=== PATIENT | female | born 1965 | race Caucasian/White ===

== ENCOUNTER → 2019-07-04 13:40 | Outpatient (BNVA) | payer BC, SELFPAY | PROVIDERS: Visit Provider Psychiatry & Neurology Psychiatry | DX: Z63.4 Disappearance and death of family member (principal); G47.33 Obstructive sleep apnea (adult) (pediatric); F17.210 Nicotine dependence, cigarettes, uncomplicated | CPT/HCPCS: 99213 ==

== ENCOUNTER → 2019-10-04 07:30 | Outpatient (BNVA) | payer BC, SELFPAY | PROVIDERS: Visit Provider Psychiatry & Neurology Psychiatry | DX: G47.33 Obstructive sleep apnea (adult) (pediatric) (principal); Z63.4 Disappearance and death of family member; F17.210 Nicotine dependence, cigarettes, uncomplicated | CPT/HCPCS: 99213 ==

== ENCOUNTER → 2019-12-06 09:42 | Outpatient (BNVA) | payer BC, SELFPAY | PROVIDERS: Visit Provider Psychiatry & Neurology Psychiatry | DX: F90.2 Attention-deficit hyperactivity disorder, combined type (principal); F17.210 Nicotine dependence, cigarettes, uncomplicated; G47.33 Obstructive sleep apnea (adult) (pediatric) | CPT/HCPCS: 99213 ==

== ENCOUNTER → 2020-03-30 07:50 | Outpatient (BNVA) | payer BC, SELFPAY | PROVIDERS: Visit Provider Nurse Practitioner Psychiatric/Mental Health | DX: Z63.4 Disappearance and death of family member (principal); F17.210 Nicotine dependence, cigarettes, uncomplicated; G47.33 Obstructive sleep apnea (adult) (pediatric) | CPT/HCPCS: 99212 ==

== ENCOUNTER → 2020-06-26 08:12 | Outpatient (BNVA) | payer BC, SELFPAY | PROVIDERS: Visit Provider Psychiatry & Neurology Psychiatry | DX: G47.33 Obstructive sleep apnea (adult) (pediatric) (principal); F17.210 Nicotine dependence, cigarettes, uncomplicated | CPT/HCPCS: 99213 ==

== ENCOUNTER → 2020-09-18 08:31 | Outpatient (BNVA) | payer BC, SELFPAY | PROVIDERS: Visit Provider Psychiatry & Neurology Psychiatry | DX: G47.33 Obstructive sleep apnea (adult) (pediatric) (principal); F17.210 Nicotine dependence, cigarettes, uncomplicated; G47.19 Other hypersomnia | CPT/HCPCS: 99214 ==

== ENCOUNTER 2020-11-04 14:49 | Outpatient (CLI) | payer OTHER, SELFPAY ==
--- NOTE | 2020-11-04 14:52 | MR_ITS ---
WS: [id number] MRI LUMBAR SPINE NONCONTRAST HISTORY: LOW BACK PAIN COMPARISON: None available. TECHNIQUE: Sagittal and axial multisequence imaging is submitted. Moderate increase in thoracic kyphosis. Moderate central disc bulging and focal disc protrusion at T1 2-L1. No cord contact on the cord. Increase in the lumbar lordosis. Less than 2 mm retrolisthesis of L1. Less than 2 mm anterolisthesis of L3. Mild disc desiccation throughout the lumbar spine with only mild narrowing at L1-2. Conus terminates normally at L1-2 disc level. L1-L2: Diffuse annular disc bulging asymmetric to the RIGHT. There is a moderate sized RIGHT foramina l disc protrusion contacting the L1 and L2 nerve roots. Most significant contact on the RIGHT L1 nerv e root. Moderate to severe RIGHT foraminal stenosis. L2-L3: Diffuse disc bulging and facet arthritis. No stenosis. L3-L4: Moderate facet and ligamentum flavum hypertrophy. Mild bilateral foraminal stenosis. L4-L5: Diffuse annular disc bulging with moderate ligamentum flavum upper kidney and facet arthritis. Mild bilateral foraminal stenosis. L5-S1: Mild annular disc bulging. Broad-based disc protrusion in the LEFT subarticular recess extendi ng into the foramen. Near complete effacement of fat in the LEFT foramen. Moderate to severe LEFT for aminal and subarticular stenosis. Disc contact on the LEFT L5 and S1 nerve roots. Lobulated cyst in the RIGHT first sacral foramina. MR/MR lumbar spine wo con* [id number] IMPRESSION: 1. Moderate to severe RIGHT foraminal stenosis at L1-2 asymmetric disc bulging and moderate disc protrusion contacting the L1 and L2 nerve roots. 2. Moderate to severe LEFT foraminal and subarticular recess stenosis due to d isc bulging and broad-based protrusion contacting the LEFT L5 and S1 nerve root s. 3. Mild bilateral foraminal stenosis at L3-4 and L4-5.
== END 2020-11-04 14:50 | disposition home or self-care (01) ==
LOC: RADSHAW 14:51
PROVIDERS: Visit Provider Chiropractor
DX: M48.061 Spinal stenosis, lumbar region without neurogenic claudication (principal); M51.26 Other intervertebral disc displacement, lumbar region
CPT/HCPCS: 72148

== ENCOUNTER 2023-01-30 15:08 | Outpatient (CLI) | payer OTHER, MEDICAID, SELFPAY ==
--- NOTE | 2023-01-30 15:21 | XR_ITS ---
WS: [id number] EXAMINATION: XR lumbar spine 2-3V* [id number] L-SPINE : 3 views REASON FOR EXAM: CHRONIC MIDLINE LOW BACK PAIN W/O SCIATICA COMPARISON: None available. ORDER DATE: 01/30/2023 3:26 PM FINDINGS: The lumbar vertebral bodies and the disc spaces are normal in width. There is a 19 degree levoscolios is centered at about the L2 level.. In the lumbar vertebra, there is no evidence of compression defor mities or spondylolisthesis. There is a curvilinear arc of calcification that superimposes the lower pole of the right kidney 2 cm in length and a few millimeters in width. This may need to be correlate d with other imaging which is not available and if no previous studies are available then a CT imagin g study is recommended to to further evaluate. IMPRESSION: Scoliosis as noted above
== END 2023-01-30 15:09 | disposition home or self-care (01) ==
PROVIDERS: Visit Provider Nurse Practitioner Family
DX: M41.86 Other forms of scoliosis, lumbar region (principal); M54.50 Low back pain, unspecified
CPT/HCPCS: 72100

== ENCOUNTER 2023-02-20 13:08 | Outpatient (CLI) | payer OTHER, MEDICAID, SELFPAY ==
--- NOTE | 2023-02-20 13:13 | MM_ITS ---
WS: [id number] VIEWS: MLO and CC views both breasts. 3D digital tomosynthesis is also included in this exam. Comparison made with prior exam of 11/14/2007, 11/20/2008, 04/09/2010, 03/18/2011, 06/17/2011,. Findings: There was no sign of mass, architectural distortion or suspicious calcification in either breast. The breasts are heterogeneously dense which may obscure small masses Impression: MM/[place] [id number] BI-RADS: 2-Benign finding. FOLLOW-UP: 1 Year Follow-up This mammogram was also analyzed by the Computer Aided Detection System R2 [employer].
== END 2023-02-20 13:09 | disposition home or self-care (01) ==
LOC: RAD 13:08
PROVIDERS: PCP Nurse Practitioner Family; Visit Provider Nurse Practitioner Family
DX: Z12.31 Encounter for screening mammogram for malignant neoplasm of breast (principal)
CPT/HCPCS: 77063; 77067

== ENCOUNTER 2024-06-12 13:38 | Outpatient (CLI) | payer OTHER, SELFPAY ==
--- NOTE | 2024-06-12 | MM_ITS ---
WS: [id number] BILATERAL 3D TOMOSYNTHESIS DIGITAL SCREENING MAMMOGRAPHY WITH CAD CLINICAL INFORMATION: ANNUAL SCREEN HISTORY: Screening mammogram. No current complaints. COMPARISON: 2022 TECHNIQUE: Bilateral CC and MLO views. FINDINGS: The breasts are composed of heterogeneous fibroglandular density tissue, which can limit the detection of small underlying mass lesions. No suspicious mass, asymmetry, calcifications, or architectural distortion. No evidence of malignancy. MM/MM scr tomosynthesis [id number] IMPRESSION: DENSITY: The breasts are heterogeneously dense, which may obscure small masses. BI-RADS: 1 - Negative FOLLOW UP: 1 Year Follow-up Recommend return to annual screening mammography.
== END 2024-06-12 13:39 | disposition home or self-care (01) ==
LOC: RAD 13:39
PROVIDERS: PCP Nurse Practitioner Family; Visit Provider Family Medicine
DX: Z12.31 Encounter for screening mammogram for malignant neoplasm of breast (principal); R92.333 Mammographic heterogeneous density, bilateral breasts
CPT/HCPCS: 77063; 77067

== ENCOUNTER 2025-02-07 20:52 | Inpatient (IN) | payer OTHER, SELFPAY ==
[2025-02-07 21:11] VITALS: BP 114/72; PULSE 112; RESP 16; TEMP 37; O2SAT 96; BMI 25.6
--- NOTE | 2025-02-07 22:44 | CTR_ITS ---
PROCEDURE INFORMATION: Exam: CT Abdomen And Pelvis With Contrast Exam date and time: 02/08/2025 12:30 AM Age: 59 years old Clinical indication: Abdominal pain; Localized; Lower; Prior surgery; Surgery date: 6+ months; Surgery type: Tubal; Additional info: Rlq and back pain TECHNIQUE: Imaging protocol: Computed tomography of the abdomen and pelvis with contrast. Radiation optimization: All CT scans at this facility use at least one of these dose optimization techniques: automated exposure control; mA and/or kV adjustment per patient size (includes targeted exams where dose is matched to clinical indication); or iterative reconstruction. Contrast material: OMNIPAQUE 350; Contrast volume: 100 ml; Contrast route: INTRAVENOUS (IV); COMPARISON: CR XR hip RT 2-3V wo/w pel* [id number] 05/07/2020 10:53 AM RADIATION DOSE METRICS: Total DLP (mGy-cm): 576.84 FINDINGS: Diaphragm: Agrr-[id number]-gjnajnuh hiatal hernia. Liver: Normal. No mass. Gallbladder and biliary ducts: Gallstones without definite significant acute inflammatory changes. Mild intra and extrahepatic biliary ductal dilatation, unknown clinical significance. Pancreas: Normal. No ductal dilation. 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 Adrenal glands: Normal. No mass. Kidneys and ureters: Ill-defined peripheral striations of low-attenuation within the bilateral kidneys, nonspecific, could be related to ascending urinary tract infection or prior infarcts with other etiologies not excluded. Stomach and bowel: Unremarkable. No obstruction. No mucosal thickening. Appendix: No evidence of appendicitis. Intraperitoneal space: Unremarkable. No free air. No significant fluid collection. Vasculature: Aortic atherosclerosis. Lymph nodes: Unremarkable. No enlarged lymph nodes. Urinary bladder: Unremarkable as visualized. Reproductive: Unremarkable as visualized. Bones/joints: [id number] degenerative changes of the lumbar spine. Soft tissues: Unremarkable. CT/CT abdomen pelvis w con* [id number] IMPRESSION: 1. Gallstones without definite significant acute inflammatory changes. 2. Ill-defined peripheral striations of low-attenuation within the bilateral kidneys, nonspecific, could be related to ascending urinary tract infection or prior infarcts with other etiologies not excluded.
--- NOTE | 2025-02-07 22:44 | W.ED.ABDPA2 ---
HPI - Abdominal Pain General: Chief Complaint: Abdominal Pain Stated Complaint: Possible Pro-Lapes Bladder Time Seen by Provider: 02/07/25 22:31 History of Present Illness: Patient presents with severe right lower quadrant pain that radiates around to the flank. The pain began earlier this week with initial pain on Monday in a different location, associated with diarrhea and fecal incontinence throughout the night. The patient reports the diarrhea resolved by the next morning with some improvement in symptoms. On , the pain returned and localized to the right lower quadrant with radiation. The patient describes the pain as severe, worse than labor pains, and reports it has significantly disrupted her sleep. She has been experiencing alternating hot and cold flashes. The patient has tried Tylenol without relief. She denies nausea or vomiting but reports urinary urgency with incontinence. The patient also mentions having uterine prolapse issues that have not been addressed due to insurance limitations. Related Data Home Medications ?Medication ?Instructions ?Recorded ?Confirmed cetirizine 10 mg tablet (Zyrtec) 10 mg PO DAILY 10/13/22 02/08/25 celecoxib 200 mg capsule 200 mg PO DAILY 11/24/23 02/08/25 omeprazole 20 mg capsule,delayed 20 mg PO DAILY 11/24/23 02/08/25 release hydrochlorothiazide 25 mg tablet 25 mg PO DAILY 02/08/25 02/08/25 Previous Rx's ?Medication ?Instructions ?Recorded tizanidine 4 mg tablet 4 mg PO BID PRN muscle spasticity 09/18/23 #60 tabs alprazolam 0.5 mg tablet (Xanax) 0.5 mg PO DAILY #30 tabs 11/08/24 dextroamphetamine-amphetamine 20 20 mg PO BID 30 days #60 tabs 01/21/25 mg tablet (Adderall) Allergies Allergy/AdvReac Type Severity Reaction Status Date / Time codeine Allergy Mild ADR-Gastrointestinal Verified 02/07/25 21:20 Upset [facility] ED PFS: Medical History Psychiatric care Bereavement Cigarette smoker Obstructive sleep apnea Family History Grandfather Diabetes Heart disease Hypertension Mother Heart disease Hyperlipidemia Hypertension Uterine cancer Father Heart disease Hyperlipidemia Hypertension Brother Hyperlipidemia Denies family history of Colon cancer Ovarian cancer Prostate cancer Breast cancer Thyroid disease Stroke Social History Smoking and tobacco/nicotine status: current every day tobacco/nicotine user cigarettes Packs smoked per day: 1 Physical Exam Const: GENERAL APPEARANCE: cooperative and ill appearing; not frail appearing HENMT: COMMON NORMALS: normocephalic, atraumatic and Normal external nose present HEAD & SCALP: normocephalic and atraumatic FACE & SINUS: normal facial exam and face symmetric NOSE: Normal external nose present Eye: COMMON NORMALS: Equal, round and reactive pupils present and EOMs intact bilaterally PUPIL: Yes Equal, round and reactive pupils present Neck/C-Spine: GENERAL: Yes trachea midline Chest: CHEST: Yes Symmetrical chest wall rise Resp: COMMON NORMALS: normal respiratory effort, No retractions, No use of accessory muscles and clear to auscultation bilaterally AUSCULTATION: clear to auscultation bilaterally Cardio: COMMON NORMALS: regular rate and regular rhythm RATE: regular rate RHYTHM: regular rhythm GI: COMMON NORMALS: Normal to inspection, nondistended, normoactive bowel sounds present PALPATION: Yes Tenderness to palpation present (GI) Details: RLQ Extremity: COMMON NORMALS: no pedal edema Neuro: MCK[place] COMA SCALE: document GCS findings [place] coma scale eye opening: Spontaneous [place] coma scale verbal response: Orientated [place] coma scale motor response: Obey commands [place] coma scale total score: 15 SENSORY EXAM: Yes extremities (intact) Psych: COMMON NORMALS: speech normal SPEECH: Yes normal speech Skin: COMMON NORMALS: no rashes or lesions noted GENERAL SKIN EXAM: no rashes or lesions noted Course Vital Signs: Vital signs: Vital Signs Temperature 101 F H 02/08/25 16:24 Pulse Rate 107 H 02/08/25 16:24 Respiratory Rate 16 02/08/25 16:24 Blood Pressure 121/66 02/08/25 16:24 Pulse Oximetry 91 02/08/25 16:24 Oxygen Delivery Me thod Room Air 02/08/25 16:24 MDM - Abdominal Pain Medical Decision Making Patient is tachycardic. She has been normotensive. She is afebrile in the ER. White blood cell count is 22. Lactic acid is 1.3 with a CRP of 292. Creatinine is 0.6. CT shows gallstones without significant inflammatory change. She has fat stranding in the bilateral kidneys which would be a finding indicative of pyelonephritis. She is given IV Rocephin here, with fluid bolus after blood cultures. She will be admitted for pyelonephritis with likely early sepsis. She was hypokalemic, so IV potassium was administered as well. Lab Data 02/08/25 09:19 02/08/25 09:19 Labs/Radiology: Radiology Impressions Abdomen/Pelvis CT 02/07/25 22:44 IMPRESSION: 1. Gallstones without definite significant acute inflammatory changes. 2. Ill-defined peripheral striations of low-attenuation within the bilateral kidneys, nonspecific, could be related to ascending urinary tract infection or prior infarcts with other etiologies not excluded. Laboratory Results WBC 29.07 10^3/uL (3.29-11.43) H 02/07/25 22:50 RBC 3.79 10^6/uL (3.85-5.65) L 02/07/25 22:50 Hgb 12.10 g/dL (11.27-16.99) 02/07/25 22:50 Hct 34.8 % (36-47) L 02/07/25 22:50 MCV 91.8 fl (85-98) 02/07/25 22:50 MCH 31.9 pg (27-33) 02/07/25 22:50 MCHC 34.8 g/dL (30-55) 02/07/25 22:50 RDW 12.5 % (12.1-15.1) 02/07/25 22:50 Plt Count 217 10^3/cmm (157-399) 02/07/25 22:50 MPV 9.7 fL (7.4-10.4) 02/07/25 22:50 Neut % (Auto) 85.7 % 02/07/25 22:50 Lymph % (Auto) 5.6 % 02/07/25 22:50 [place] % (Auto) 7.4 % 02/07/25 22:50 Eos % (Auto) 0.1 % 02/07/25 22:50 Baso % (Auto) 0.4 % 02/07/25 22:50 Neut # (Auto) 24.92 10^3/uL (1.8-7.7) H 02/07/25 22:50 Lymph # (Auto) 1.6 10^3/uL (0.8-4.8) 02/07/25 22:50 [place] # (Auto) 2.2 10^3/uL (0.2-0.9) H 02/07/25 22:50 Eos # (Auto) 0.0 10^3/uL (0.0-0.8) 02/07/25 22:50 Baso # (Auto) 0.1 10^3/uL (0.0-0.1) 02/07/25 22:50 Nucleated RBC % (auto) 0 % 02/07/25 22:50 Nucleated RBCs # 0.0 /100WBC 02/07/25 22:50 Sodium 137 mmol/L (136-145) 02/07/25 22:50 Potassium 2.9 mmol/L (3.5-5.1) L 02/07/25 22:50 Chloride 96 mmol/L (98-107) L 02/07/25 22:50 Carbon Dioxide 24 mmol/L (22-29) 02/07/25 22:50 Anion Gap 19.9 (5-19) H 02/07/25 22:50 BUN 15 mg/dL (8-23) 02/07/25 22:50 Creatinine 0.7 mg/dL (0.5-0.9) 02/07/25 22:50 GFR Calculation 85.4 mL/min (90-130) L 02/07/25 22:50 Glucose 124 mg/dL (65-115) H 02/07/25 22:50 Calculated Osmolality 286 mOsm/kg (285-295) 02/07/25 22:50 Lactic Acid 1.3 mmol/L (0.5-2.2) 02/07/25 22:50 Calcium 9.3 mg/dL (8.5-10.5) 02/07/25 22:50 Magnesium 1.5 mg/dL (1.7-2.3) L 02/07/25 22:50 Total Bilirubin 0.6 mg/dL (0.15-1.2) 02/07/25 22:50 AST 42 U/L (0-32) H 02/07/25 22:50 ALT 81 U/L (0-33) H 02/07/25 22:50 Alkaline Phosphatase 130 U/L (35-105) H 02/07/25 22:50 C-Reactive Protein 292.3 mg/L (0.0-4.9) H 02/07/25 22:50 Total Protein 7.5 g/dL (6.6-8.7) 02/07/25:50 Albumin 4.0 g/dL (3.5-5.2) 02/07/25 22:50 Globulin 3.5 g/dL (1.3-4.6) 02/07/25 22:50 Lipase 21 U/L (13-60) 02/07/25 22:50 Urine Color Yellow (Yellow) 02/07/25 22:50 Urine Appearance Clear (CLEAR) 02/07/25 22:50 Urine pH 5 (5-7) 02/07/25 22:50 Ur Specific [place] 1.015 (1.005-1.030) 02/07/25:50 Urine Protein 1+ (Negative) H 02/07/25 22:50 Urine Glucose (UA) Norm (Normal) 02/07/25:50 Urine Ketones 1+ (Negative) H 02/07/25 22:50 Urine Blood Neg (Negative) 02/07/25:50 Urine Nitrate Negative (Negative) 02/07/25:50 Urine Bilirubin 1+ (Negative) H 02/07/25 22:50 Urine Urobilinogen 1 mg/dL (Negative) H 02/07/25 22:50 Ur Leukocyte Esterase 1+ (Negative) H 02/07/25 22:50 Urine RBC None /hpf (0-2) 02/07/25 22:50 Urine WBC 25-40 /hpf (0-5) H 02/07/25 22:50 Ur Squamous Epith Cells 0-4 /hpf (0-5) H 02/07/25 22:50 Ur Transition Epith Cell 0-4 /hpf 02/07/25 22:50 Amorphous Sediment Not Reportable 02/07/25:50 Urine Bacteria 1+ /hpf (NONE) H 02/07/25 22:50 All radiology interpretation(s) finalized by discharge Discharge Plan Discharge Patient Disposition: Admitted As Inpatient Admit Provider: Sheila Degroot Clinical Impression: Acute pyelonephritis due to bacteria, Dehydration, Hypokalemia, Pyuria due to bacterial urinary tract infection Condition: Fair Coding Level of Care Code ED [employer] for Aristides Bowers
[2025-02-07 22:54] VITALS: BP 116/76; PULSE 87; O2SAT 98
[2025-02-07 23:00] VITALS: BP 95/69; PULSE 99; O2SAT 93
[2025-02-07] MEDS: ondansetron 2 mg/ML SDV 2 mL 4 MG IVP (23:02)
[2025-02-07] MEDS: morphine 4 mg/mL SDV 1 mL IVP (23:02)
[2025-02-07 23:14] LABS: Hematocrit 34.8 % (36-47); Hemoglobin 12.10 g/dL (11.27-16.99); Mean Corpuscular HGB Conc 34.8 g/dL (30-55); Mean Corpuscular Hemoglobin 31.9 pg (27-33); Mean Corpuscular Volume 91.8 fl (85-98); Nucleated Red Blood Cells % 0 %; Platelet Count 217 10^3/cmm (157-399); Red Blood Count 3.79 10^6/uL (3.85-5.65); White Blood Count 29.07 10^3/uL (3.29-11.43)
[2025-02-07 23:30] VITALS: BP 130/70; PULSE 95; O2SAT 97
[2025-02-07 23:42] LABS: Lactic Sepsis W/Reflex 1.3 mmol/L (0.5-2.2)
[2025-02-07 23:43] LABS: Alanine Aminotransferase 81 U/L (0-33); Albumin Level 4.0 g/dL (3.5-5.2); Alkaline Phosphatase 130 U/L (35-105); Anion Gap 19.9 (5-19); Aspartate Amino Transferase 42 U/L (0-32); Blood Urea Nitrogen 15 mg/dL (8-23); Calcium 9.3 mg/dL (8.5-10.5); Carbon Dioxide 24 mmol/L (22-29); Chloride 96 mmol/L (98-107); Creatinine Clr Calc Pharmacy 74.8286; Globulin 3.5 g/dL (1.3-4.6); Glucose 124 mg/dL (65-115); Lipase 21 U/L (13-60); Osmolality Calculated 286 mOsm/kg (285-295); Sodium 137 mmol/L (136-145); Total Protein 7.5 g/dL (6.6-8.7)
[2025-02-07 23:49] LABS: Potassium 2.9 mmol/L (3.5-5.1)
[2025-02-07] MEDS: lidocaine 2% viscous 15 ML, aluminum-mag hydrox-simethicon 30 ML, sucralfate oral liq 1 GM PO (23:49)
[2025-02-08] VITALS (10 sets, daily range): BP systolic 100–144; BP diastolic 50–88; PULSE 71–110; RESP 16–20; TEMP 36.6–38.3; O2SAT 90–99
[2025-02-08] MEDS: lidocaine 1% 5 ML in potassium chloride premix 100 ML 52.5 ML IV (00:17)
[2025-02-08 00:21] LABS: Glucose Urine UA Norm (Normal); Nitrate Urine Negative (Negative); Specific Gravity, Urine 1.015 (1.005-1.030)
[2025-02-08] MEDS: iohexol 350 mg/mL 500 mL Btl (per mL) IV (00:35)
[2025-02-08 00:44] LABS: Add Urine Microscopic? YES; UA Manual Slide Review YES
[2025-02-08] MEDS: sodium chloride 0.9% (100 ml) 100 ML 200 ML (02:15)
[2025-02-08] MEDS: cefTRIAXone 2,000 mg SDV 2000 MG IVP (02:15)
--- NOTE | 2025-02-08 03:06 | PM.HP ---
Providers/Chief Complaint Admitting Physician: Sheila Degroot MD--patient seen and evaluated after midnight Primary Care Provider: Yaneth Rico DO Chief Complaint: Possible Pro-Lapes Bladder History of Present Illness Divine Mittal is a 59 year old female with cholelithiasis and LFTs elevation but no sign of cholecystitis presenting with abdominal pain that is radiating into the back x [address] of the abdomen and pelvics had shown cholelithiasis and perinephric stranding bilaterally. Patient also is with uterine prolapse and also incontinent is physician following up on that outpatient. Further workup in the emergency room showed a white count of 29,000 C-reactive protein of 292.3, pyuria 40-50 not impressive. Chemistry significant for potassium of 2.9. Patient was pancultured from blood and urine and initiated on ceftriaxone for pyelonephritis and elevated white count. Hospitalist consulted to evaluate patient for admission. I have seen and evaluated patient at this time, patient meets inpatient criteria because of high-grade inflammation secondary to pyelonephritis with white count of 29,000 and C-reactive protein at 292.3 mg/L. Pain medication optimized with an anti-inflammatory Toradol and a breakthrough pain with Dilaudid Review of Systems Narrative: System review upon 10 organ system review is significant for gastroenterology with abdominal pain otherwise unremarkable Medications/Allergies Home Medications ?Medication ?Instructions ?Recorded ?Confirmed ?Last Taken ?Type cetirizine 10 mg tablet (Zyrtec) 10 mg PO DAILY 10/13/22 01/21/25 Unknown History tizanidine 4 mg tablet 4 mg PO BID PRN muscle spasticity 09/18/23 01/21/25 Unknown Rx #60 tabs celecoxib 200 mg capsule 200 mg PO DAILY 11/24/23 01/21/25 Unknown History omeprazole 20 mg capsule,delayed 20 mg PO DAILY 11/24/23 01/21/25 Unknown History release alprazolam 0.5 mg tablet (Xanax) 0.5 mg PO DAILY #30 tabs 11/08/24 01/21/25 Unknown Rx dextroamphetamine-amphetamine 20 20 mg PO BID 30 days #60 tabs 01/21/25 01/21/25 Unknown Rx mg tablet (Adderall) dextroamphetamine-amphetamine 20 20 mg PO BID 30 days #60 tabs 01/21/25 01/21/25 Unknown Rx mg tablet (Adderall) dextroamphetamine-amphetamine 20 20 mg PO BID 30 days #60 tabs 01/21/25 01/21/25 Unknown Rx mg tablet (Adderall) Allergies Allergy/AdvReac Type Severity Reaction Status Date / Time codeine Allergy Mild ADR-Gastrointestinal Verified 02/07/25 21:20 Upset PFSH Acute PFSH: Medical History Psychiatric care Bereavement Cigarette smoker Obstructive sleep apnea Family History Grandfather Diabetes Heart disease Hypertension Mother Heart disease Hyperlipidemia Hypertension Uterine cancer Father Heart disease Hyperlipidemia Hypertension Brother Hyperlipidemia Denies family history of Colon cancer Ovarian cancer Prostate cancer Breast cancer Thyroid disease Stroke Social History Smoking and tobacco/nicotine status: current every day tobacco/nicotine user cigarettes Packs smoked per day: 1 Vitals/I&O/Wt Last Vital Signs Temp 98.6 F 02/07/25 21:11 Pulse 95 02/08/25 01:00 Resp 16 02/07/25 21:11 BP 100/50 02/08/25 01:00 Pulse Ox 96 02/08/25 01:00 O2 Del Method Room Air 02/07/25 21:11 02/07/25 02/07/25 02/08/25 14:59 22:59 06:59 Intake Total 0 / 0 1105 / 1105 Balance 0 / 0 1105 / 1105 Weight last 48 hrs Weight 63.503 kg Physical Exam Narrative: Patient is much better no much in excruciating pain following administration of Toradol in the emergency room. I have seen patient in the room in the medical floor feeling much better nausea Mat to initiate continuous IV fluid awaiting for pharmacy authorization with all other medications. HEENT normocephalic/atraumatic neck neck is supple cardiovascular heart rate is regular lungs are pretty much clear abdomen soft tenderness in the left groin region. The patient had no costophrenic angle tenderness. unremarkable extremities are intact no edema has good pulses neurology he has no focality lab studies lab studies reviewed and noted for significance of 29,000 white count and hypokalemia of 2.9. Data 02/07/25 22:50 02/07/25 22:50 Micro: Microbiology 02/08/25 02:40 Blood Culture - Preliminary Blood SPECIMEN COLLECTED 02/08/25 02:43 Blood Culture - Preliminary Blood SPECIMEN COLLECTED A&P Assessment and plan 1. Acute pyelonephritis due to bacteria: 2. Abdominal pain: 3. Pyuria due to bacterial urinary tract infection: 4. Hypokalemia: 5. Dehydration: 6. Urinary incontinence: 7. Cigarette smoker: 8. Obstructive sleep apnea: 9. Cholelithiasis: Plan: #1 Acute pyelonephritis significant for CT finding and right flank pain and left groin pain - Admit to general medical floor without telemetry - IV hydration at 125 mL/h normal saline - Pain management with anti-inflammatory with Toradol at 30 mg IV Q6 scheduled and not to exceed 5 days - Breakthrough pain can be used with Dilaudid 0.5 mg every 4 hours as needed - Must continue to treat with IV hydration antibiotics with ceftriaxone and IV hydration #2 Dehydration - Continue to rehydrate #3 Hypokalemia of 2.9 - Patient had received 20 mEq of K rider in the emergency room - Was continue with oral 40 mEq KCl now and if could not tolerate that then patient need to go by K rider #4 Pyuria due to bacterial infection - Antibiotics have been initiated after panculture to place with urine and blood cultures #5 Chronic medical condition with urinary incontinence/cigarette smoking/obstructive sleep apnea - Patient to continue with home regimen and also counseling with the primary care doctor concerning cigarettes smoking case have been discussed the adverse effect of cigarette smoking and to stop smoking Patient to follow through with PCP for care of obstructive sleep apnea concerning sleep studies and all #7 Cholelithiasis with no cholecystitis #8 GI and DVT prophylaxis in place PDMP PDMP Reviewed: Not Reviewed Attestations Medical Necessity Statement*: Patient with right flank abdominal pain and left groin pain significant for a CT finding of bilateral pyelonephritis will need at least 2 midnights for optimization of care in the setting of a white count of 29,000 and a high inflammatory marker of C-reactive protein of 292.3 mg/L. Coding Level of Care Code 44443 Diagnoses Acute pyelonephritis due to bacteria N10; B96.89 Abdominal pain R10.9 Pyuria due to bacterial urinary tract infection N39.0 Hypokalemia E87.6 Dehydration E86.0 Urinary incontinence R32 Cigarette smoker F17.210 Obstructive sleep apnea G47.33 Cholelithiasis K80.20 Time Spent (min) 60
[2025-02-08 04:23] LABS: Magnesium 1.5 mg/dL (1.7-2.3)
[2025-02-08] MEDS: pantoprazole 40 mg SDV IVP (04:33)
[2025-02-08] MEDS: heparin 5,000 unit/mL INJ 1 mL 5000 UNIT SUBCUT ×3 (04:36→20:25)
[2025-02-08] MEDS: magnesium sulfate premix 1 GM/100 ML PIGGYBACK IV (09:49)
[2025-02-08 09:53] LABS: Hematocrit 32.0 % (36-47); Hemoglobin 10.60 g/dL (11.27-16.99); Mean Corpuscular HGB Conc 33.1 g/dL (30-55); Mean Corpuscular Hemoglobin 32.3 pg (27-33); Mean Corpuscular Volume 97.6 fl (85-98); Nucleated Red Blood Cells % 0 %; Platelet Count 183 10^3/cmm (157-399); Red Blood Count 3.28 10^6/uL (3.85-5.65); White Blood Count 22.34 10^3/uL (3.29-11.43)
[2025-02-08 10:14] LABS: Alanine Aminotransferase 125 U/L (0-33); Albumin Level 3.1 g/dL (3.5-5.2); Alkaline Phosphatase 151 U/L (35-105); Anion Gap 14.8 (5-19); Aspartate Amino Transferase 76 U/L (0-32); Blood Urea Nitrogen 12 mg/dL (8-23); Calcium 7.9 mg/dL (8.5-10.5); Carbon Dioxide 22 mmol/L (22-29); Chloride 106 mmol/L (98-107); Creatinine Clr Calc Pharmacy 89.7846; Globulin 2.6 g/dL (1.3-4.6); Glucose 125 mg/dL (65-115); Magnesium 1.4 mg/dL (1.7-2.3); Osmolality Calculated 289 mOsm/kg (285-295); Potassium 3.8 mmol/L (3.5-5.1); Sodium 139 mmol/L (136-145); Total Protein 5.7 g/dL (6.6-8.7)
--- NOTE | 2025-02-08 11:30 | PM.PN ---
Subjective Subjective: She is doing well this morning with no acute complaints. She denies any dysuria, urinary frequency, or flank pain. Medications: Reviewed: Yes Vitals/I&O/Wt Last Vital Signs Temp 99.1 F 02/08/25 07:45 Pulse 97 02/08/25 07:45 Resp 18 02/08/25 07:45 BP 105/65 02/08/25 07:45 Pulse Ox 95 02/08/25 07:45 O2 Del Method Room Air 02/08/25 07:45 02/07/25 02/08/25 02/08/25 22:59 06:59 14:59 Intake Total 0 / 0 3110.09 / 3110.09 480 / 480 Balance 0 / 0 3110.09 / 3110.09 480 / 480 Weight last 48 hrs Weight 67.449 kg Weight 63.503 kg Physical Exam Narrative: GEN: Alert, no acute distress HEENT: Normocephalic, atraumatic, PERRLA Neck: Supple Respiratory: No respiratory distress, clear to auscultation bilaterally Cardio: Regular rate and rhythm, S1, S2, no murmur Abdomen: Soft, nontender, normoactive bowel sounds, no CVA tenderness Extremity: Warm, no edema Neuro: Alert and oriented x 3, no focal deficits Skin: No rash or lesion Data 02/08/25 09:19 02/08/25 09:19 Micro: Microbiology 02/08/25 02:40 Blood Culture - Preliminary Blood SPECIMEN COLLECTED 02/08/25 02:43 Blood Culture - Preliminary Blood SPECIMEN COLLECTED A&P Assessment and plan 1. Acute pyelonephritis due to bacteria: Continue ceftriaxone Follow-up. Blood cultures 2. Hypokalemia: Resolved 3. Hypomagnesemia: Repleted 4. Hypophosphatemia: Repleted 5. Dehydration: Received IV fluids in the ED 6. Cigarette smoker: She has not smoked in a while. Counseled on smoking cessation 7. Obstructive sleep apnea: CPAP nightly 8. Cholelithiasis: Gallstones without acute inflammatory changes noted on CT abdomen pelvis Plan: GI and DVT prophylaxis in place PDMP PDMP Reviewed: Not Reviewed Attestations Medical Necessity Statement*: She requires continued hospitalization for IV antibiotics. Coding Level of Care Code Acute Code for [facility] Diagnoses Acute pyelonephritis due to bacteria N10; B96.89 Hypokalemia E87.6 Hypomagnesemia E83.42 Hypophosphatemia E83.39 Dehydration E86.0 Cigarette smoker F17.210 Obstructive sleep apnea G47.33 Cholelithiasis K80.20
[2025-02-08] MEDS: potassium phosphate (mMol PO4) 30 MMOL in sodium chloride 0.9% (100 ml) 100 ML 25 MMOL IV (17:42)
[2025-02-09] VITALS (8 sets, daily range): BP systolic 114–161; BP diastolic 62–77; PULSE 73–93; RESP 17–20; TEMP 36.8–37.4; O2SAT 90–95
[2025-02-09] MEDS: pantoprazole 40 mg SDV IVP (02:05)
[2025-02-09] MEDS: cefTRIAXone 2,000 mg SDV 2000 MG IVP (02:05)
[2025-02-09] MEDS: heparin 5,000 unit/mL INJ 1 mL 5000 UNIT SUBCUT ×3 (02:05→18:54)
[2025-02-09 05:43] LABS: Hematocrit 27.5 % (36-47); Hemoglobin 9.30 g/dL (11.27-16.99); Mean Corpuscular HGB Conc 33.8 g/dL (30-55); Mean Corpuscular Hemoglobin 32.0 pg (27-33); Mean Corpuscular Volume 94.5 fl (85-98); Nucleated Red Blood Cells % 0 %; Platelet Count 194 10^3/cmm (157-399); Red Blood Count 2.91 10^6/uL (3.85-5.65); White Blood Count 19.70 10^3/uL (3.29-11.43)
[2025-02-09 06:02] LABS: Alanine Aminotransferase 92 U/L (0-33); Albumin Level 3.1 g/dL (3.5-5.2); Alkaline Phosphatase 204 U/L (35-105); Anion Gap 14.6 (5-19); Aspartate Amino Transferase 46 U/L (0-32); Blood Urea Nitrogen 15 mg/dL (8-23); Calcium 8.0 mg/dL (8.5-10.5); Carbon Dioxide 23 mmol/L (22-29); Chloride 108 mmol/L (98-107); Creatinine Clr Calc Pharmacy 108.6330; Globulin 2.4 g/dL (1.3-4.6); Glucose 118 mg/dL (65-115); Osmolality Calculated 296 mOsm/kg (285-295); Potassium 3.6 mmol/L (3.5-5.1); Sodium 142 mmol/L (136-145); Total Protein 5.5 g/dL (6.6-8.7)
[2025-02-09 11:09] LABS: Magnesium 1.8 mg/dL (1.7-2.3)
--- NOTE | 2025-02-09 14:15 | P.PN_ITS ---
Subjective 2 Subjective: She is doing well this morning with no acute complaints. She denies any dysuria, urinary frequency, or flank pain. Her urine culture is still pending Medications: Reviewed: Yes Vitals/I&O/Wt Last Vital Signs Temp 98.2 F 02/09/25 11:18 Pulse 85 02/09/25 11:18 Resp 18 02/09/25 11:18 BP 133/73 02/09/25 11:18 Pulse Ox 90 02/09/25 11:18 O2 Del Method Room Air 02/09/25 11:18 FiO2 21 02/08/25 20:28 02/08/25 02/09/25 02/09/25 22:59 06:59 14:59 Intake Total 830 / 2890 720 / 720 Balance 830 / 2890 720 / 720 Weight last 48 hrs Weight 68.629 kg Weight 67.449 kg Weight 63.503 kg Physical Exam 2 Narrative: GEN: Alert, no acute distress HEENT: Normocephalic, atraumatic, PERRLA Neck: Supple Respiratory: No respiratory distress, clear to auscultation bilaterally Cardio: Regular rate and rhythm, S1, S2, no murmur Abdomen: Soft, nontender, normoactive bowel sounds, no CVA tenderness Extremity: Warm, no edema Neuro: Alert and oriented x 3, no focal deficits Skin: No rash or lesion Data 02/09/25 04:46 02/09/25 04:46 Micro: Microbiology 02/07/25 22:50 Urine Culture - Preliminary Urine,Clean Catch 02/08/25 02:40 Blood Culture - Preliminary Blood NEGATIVE TO DATE 02/08/25 02:43 Blood Culture - Preliminary Blood NEGATIVE TO DATE A&P Assessment and plan 1. Sepsis: Sepsis present on admission with fever, tachycardia, and leukocytosis, now resolved Secondary to pyelonephritis Follow-up blood and urine cultures 2. Acute pyelonephritis due to bacteria: Continue ceftriaxone Follow-up urine and blood cultures 3. Hypokalemia: Resolved 4. Hypomagnesemia: Resolved 5. Hypophosphatemia: Resolved 6. Dehydration: Received IV fluids in the ED 7. Cigarette smoker: She has not smoked in a while. Counseled on smoking cessation 8. Obstructive sleep apnea: CPAP nightly 9. Cholelithiasis: Gallstones without acute inflammatory changes noted on CT abdomen pelvis CT abdomen pelvis on admission showed intracranial and extrahepatic biliary ductal dilatation of unknown clinical significance Her LFTs are mild elevated Liver US ordered Plan: Dispo: pending final urine culture results and liver US GI and DVT prophylaxis in place PDMP PDMP Reviewed: Not Reviewed Attestations 2 Medical Necessity Statement*: She needs continued hospitalization for IV antibiotics. Waiting for final urine cultures. Coding Level of Care Code Acute Code for [facility] Fwd Diagnoses Sepsis A41.9 Acute pyelonephritis due to bacteria N10; B96.89 Hypokalemia E87.6 Hypomagnesemia E83.42 Hypophosphatemia E83.39 Dehydration E86.0 Cigarette smoker F17.210 Obstructive sleep apnea G47.33 Cholelithiasis K80.20
--- NOTE | 2025-02-09 21:21 | XRR_ITS ---
PROCEDURE INFORMATION: Exam: XR Chest Exam date and time: 02/09/2025 9:40 PM Age: 59 years old Clinical indication: Cough and shortness of breath; Additional info: Cough, shortness of breath TECHNIQUE: Imaging protocol: Radiologic exam of the chest. Views: 1 view. COMPARISON: CT abdomen pelvis w con* [id number] 02/08/2025 12:30 AM FINDINGS: Lungs: There are nonspecific opacities lower lobes right middle lobe atelectasis or pneumonia could be considered correlate and follow-up as indicated Pleural spaces: Small pleural effusions present. Heart/Mediastinum: Unremarkable. No cardiomegaly. Bones/joints: Unremarkable. XR/XR chest 1V portable [id number] IMPRESSION: Opacities lower lobe nonspecific atelectasis or pneumonia could be considered correlate and follow-up as indicated.
[2025-02-09] MEDS: ondansetron 2 mg/ML SDV 2 mL 4 MG IVP (21:28)
[2025-02-09] MEDS: guaiFENesin 100 mg/5 mL UDC 10 mL 200 MG PO (22:15)
[2025-02-09] MEDS: saline nasal spray 44mL Btl 1 SPRAY NASAL (22:17)
[2025-02-10] VITALS: BP 114/61; PULSE 98; RESP 21; TEMP 36.8; O2SAT 93
[2025-02-10 01:38] LABS: Coronavirus 229E,HKU1,NL63,OC4 Not Detected (NOT DETECT); Parainfluenza Virus Type 1 Not Detected (NOT DETECT); Parainfluenza Virus Type 2 Not Detected (NOT DETECT); Parainfluenza Virus Type 3 Not Detected (NOT DETECT); Parainfluenza Virus Type 4 Not Detected (NOT DETECT); SARS-COV-2 Not Detected (NOT DETECT)
[2025-02-10] MEDS: pantoprazole 40 mg SDV IVP (03:01)
[2025-02-10] MEDS: heparin 5,000 unit/mL INJ 1 mL 5000 UNIT SUBCUT ×2 (03:01→10:44)
[2025-02-10] MEDS: cefTRIAXone 2,000 mg SDV 2000 MG IVP (03:01)
[2025-02-10 03:39] VITALS: BP 157/65; PULSE 88; RESP 16; TEMP 37.1; O2SAT 92
[2025-02-10 04:13] VITALS: PULSE 86; RESP 24; O2SAT 93
[2025-02-10 04:13] LABS: Hematocrit 26.8 % (36-47); Hemoglobin 8.90 g/dL (11.27-16.99); Mean Corpuscular HGB Conc 33.2 g/dL (30-55); Mean Corpuscular Hemoglobin 31.1 pg (27-33); Mean Corpuscular Volume 93.7 fl (85-98); Nucleated Red Blood Cells % 0 %; Platelet Count 188 10^3/cmm (157-399); Red Blood Count 2.86 10^6/uL (3.85-5.65); White Blood Count 10.75 10^3/uL (3.29-11.43)
[2025-02-10 04:35] LABS: Alanine Aminotransferase 87 U/L (0-33); Albumin Level 3.1 g/dL (3.5-5.2); Alkaline Phosphatase 130 U/L (35-105); Anion Gap 17.5 (5-19); Aspartate Amino Transferase 43 U/L (0-32); Blood Urea Nitrogen 14 mg/dL (8-23); Calcium 8.3 mg/dL (8.5-10.5); Carbon Dioxide 22 mmol/L (22-29); Chloride 103 mmol/L (98-107); Globulin 2.6 g/dL (1.3-4.6); Glucose 117 mg/dL (65-115); Osmolality Calculated 290 mOsm/kg (285-295); Potassium 3.5 mmol/L (3.5-5.1); Sodium 139 mmol/L (136-145); Total Protein 5.7 g/dL (6.6-8.7)
[2025-02-10 04:38] LABS: Creatinine Clr Calc Pharmacy 136.0482
[2025-02-10 08:00] VITALS: BP 121/68; PULSE 76; RESP 16; RESP 19; TEMP 36.6; O2SAT 94; O2SAT 95
--- NOTE | 2025-02-10 09:23 | PC.CHAP ---
Pastoral Care Encounter/Spiritual Assessment Type of Contact [] Declined licensed embalmer visit [] Patient/Family/Request visit [] Outpatient visit [] Follow-up visit [] Physician referral [] Code/Alert [x] Routine visit [] Staff referral [] Actively dying [] Patient sleeping [x] Family support [] [] Out of room [] Palliative care [] [] Receiving care in room [] Pre-surgical visit [] Trauma [] Long length of stay [] ICU visit [] Other: Relational/Emotional Strength [] Patient feels connected with others/family/visitors/staff [] Distress [] Loneliness/isolation [] Abandonment Spirituality of Patient [x] Person of Tricia [] Attends Faith of their Tricia [x] Believes in Prayer [] Reads Bible or Bahai materials [] There are Spiritual issues to be addressed Physician Extender Interventions [x] Prayer [x] Active listening [] Non-anxious presence [] Spiritual/emotional support [] Crisis/trauma care [] Spiritual counseling [] Bereavement support [] Provided bereavement packet [x] Provided Bible/devotional materials [] Provided toy/stuffed animal, coloring book to patient or family member [] Provided Communion [] Anointing/Straughn [] Salvation [x] Completed spiritual assessment [] Other: Impact on Illness or Injury [] Angry [] Fearful [] Anxious [] Often cries [] Exhaustion [] Unable to work [] Unable to attend denominational [] Unable to walk/stand [] Unable to read [] Unable to drive [] Unable to eat/drink [] Unable to sleep [] Unable to be with family [] Patient intubated [] Other: Summary Time spent with patient 10 min
[2025-02-10 11:03] VITALS: BP 128/80; PULSE 88; RESP 18; TEMP 36.7; O2SAT 93
--- NOTE | 2025-02-10 11:28 | P.DS_ITS ---
Discharge Providers Date of Admission: 02/08/25 01:58 Date of Discharge: February 10, 2025 Attending Provider at Admission: Sheila Degroot MD Attending Provider at Discharge: Husam Vance MD Primary Care Provider: Yaneth Rico DO Diagnoses at Discharge Discharge Diagnosis 1. Sepsis: 2. Acute pyelonephritis due to bacteria: 3. Hypokalemia: 4. Hypomagnesemia: 5. Hypophosphatemia: 6. Dehydration: 7. Cigarette smoker: 8. Obstructive sleep apnea: 9. Cholelithiasis: Reason for Visit Reason for Visit: Possible Pro-Lapes Bladder Brief History: Per HPI: Divine Mittal is a 59 year old female with cholelithiasis and LFTs elevation but no sign of cholecystitis presenting with abdominal pain that is radiating into the back x [address] of the abdomen and pelvics had shown cholelithiasis and perinephric stranding bilaterally. Patient also is with uterine prolapse and also incontinent is physician following up on that outpatient. Further workup in the emergency room showed a white count of 29,000 C-reactive protein of 292.3, pyuria 40-50 not impressive. Chemistry significant for potassium of 2.9. Patient was pancultured from blood and urine and initiated on ceftriaxone for pyelonephritis and elevated white count. Hospitalist consulted to evaluate patient for admission. I have seen and evaluated patient at this time, patient meets inpatient criteria because of high-grade inflammation secondary to pyelonephritis with white count of 29,000 and C-reactive protein at 292.3 mg/L. Pain medication optimized with an anti- inflammatory Toradol and a breakthrough pain with Dilaudid Hospital Course Hospital Course Patient was admitted to the hospital initially with concerns for possible UTI. Was started on broad-spectrum IV antibiotics. Blood cultures remained negative. Urine culture remained negative as well. She persistently had right upper quadrant pain with concerns for transaminitis. CT abdomen pelvis and liver ultrasound was concerning for possible mild cholecystitis with gallstones and sludge. MRCP was done which showed improvement in biliary duct dilatation which is back to normal without any pericholecystic fluid or inflammation with concerns for recently passed gallstone. She has been discharged in hemodynamically stable condition on oral ciprofloxacin and Flagyl for 5 more days with advised to follow-up with surgical team as an outpatient in the next 2 weeks for possible cholecystectomy as an outpatient. Physical Exam Narrative: GEN: Alert, no acute distress HEENT: Normocephalic, atraumatic, PERRLA Neck: Supple Respiratory: No respiratory distress, clear to auscultation bilaterally Cardio: Regular rate and rhythm, S1, S2, no murmur Abdomen: Soft, mild tenderness in right upper quadrant on deep palpation, normoactive bowel sounds, no CVA tenderness Extremity: Warm, no edema Neuro: Alert and oriented x 3, no focal deficits Skin: No rash or lesion Discharge Data Studies Completed and Pending Completed Studies During Hospitalization Category Date Time Status CT abdomen pelvis w con* [id number] Stat Cat Scan 02/07/25 22:44 Completed XR chest 1V portable [id number] Routine Exams 02/09/25 21:21 Completed US liver [id number] Routine Ultrasound 02/10/25 14:23 Completed Pending at discharge Category Date Time Status Blood Culture Stat Lab 02/08/25 02:40 Results Radiology Impressions Abdomen/Pelvis CT 02/07/25 22:44 IMPRESSION: 1. Gallstones without definite significant acute inflammatory changes. 2. Ill-defined peripheral striations of low-attenuation within the bilateral kidneys, nonspecific, could be related to ascending urinary tract infection or prior infarcts with other etiologies not excluded. Chest X-Ray 02/09/25 21:21 IMPRESSION: Opacities lower lobe nonspecific atelectasis or pneumonia could be considered correlate and follow-up as indicated. Liver Ultrasound 02/10/25 14:23 IMPRESSION: 1. Small amount of sludge and possible gravel-like stones within the gallbladder. No gallbladder wall thickening or edema. 2. Normal common bile duct. Common bile duct was measuring top normal size to slightly enlarged on the CT of 02/08/2025. By ultrasound the common bile duct is normal and there is no intrahepatic duct dilatation. If liver enzymes continue to be abnormal consider follow-up MRCP. 3. Small RIGHT pleural effusion. New since the CT of 02/08/2025. 4. Normal RIGHT kidney. MRCP Impression: 1. No significant gallbladder wall thickening or pericholecystic fluid. Cholelithiasis with tiny calculi or stones better visualized in the ultrasound. 2. Significant interval improvement in the common bile duct dilatation which is now normal size measuring 3 mm. This suggest interval passage of a calculus. Recommend correlation with thyroid function studies. 3. Hepatomegaly with steatosis 4. Small pleural effusions 5. Large esophageal hiatal hernia send this Laboratory Results WBC 10.75 10^3/uL (3.29-11.43) 02/10/25 03: RBC 2.86 10^6/uL (3.85-5.65) L 02/10/25 03:27 Hgb 8.90 g/dL (11.27-16.99) L 02/10/25 03: Hct 26.8 % (36-47) L 02/10/25 03: MCV 93.7 fl (85-98) 02/10/25 03:27 MCH 31.1 pg (27-33) 02/10/25 03: MCHC 33.2 g/dL (30-55) 02/10/25 03: RDW 13.2 % (12.1-15.1) 02/10/25 03:27 Plt Count 188 10^3/cmm (157-399) 02/10/25 03:27 MPV 10.3 fL (7.4-10.4) 02/10/25 03:27 Neut % (Auto) 71.3 % 02/10/25 03:27 Lymph % (Auto) 17.6 % 02/10/25 03:27 [place] % (Auto) 7.2 % 02/10/25 03:27 Eos % (Auto) 1.3 % 02/10/25 03:27 Baso % (Auto) 0.3 % 02/10/25 03:27 Neut # (Auto) 7.67 10^3/uL (1.8-7.7) 02/10/25 03:27 Lymph # (Auto) 1.9 10^3/uL (0.8-4.8) 02/10/25 03:27 [place] # (Auto) 0.8 10^3/uL (0.2-0.9) 02/10/25 03: Eos # (Auto) 0.1 10^3/uL (0.0-0.8) 02/10/25 03:27 Baso # (Auto) 0.0 10^3/uL (0.0-0.1) 02/10/25 03:27 Nucleated RBC % (auto) 0 % 02/10/25 03:27 Nucleated RBCs # 0.0 /100WBC 02/10/25 03:27 Sodium 139 mmol/L (136-145) 02/10/25 03:27 Potassium 3.5 mmol/L (3.5-5.1) 02/10/25 03:27 Chloride 103 mmol/L (98-107) 02/10/25 03:27 Carbon Dioxide 22 mmol/L (22-29) 02/10/25 03:27 Anion Gap 17.5 (5-19) 02/10/25 03:27 BUN 14 mg/dL (8-23) 02/10/25 03:27 Creatinine 0.4 mg/dL (0.5-0.9) L 02/10/25 03:27 GFR Calculation 162.8 mL/min (90-130) H 02/10/25 03:27 Glucose 117 mg/dL (65-115) H 02/10/25 03:27 Calculated Osmolality 290 mOsm/kg (285-295) 02/10/25 03:27 Lactic Acid 1.3 mmol/L (0.5-2.2) 02/07/25 22:50 Calcium 8.3 mg/dL (8.5-10.5) L 02/10/25 03:27 Phosphorus 3.0 mg/dL (2.5-4.5) D 02/09/25 04:46 Magnesium 1.8 mg/dL (1.7-2.3) 02/09/25 04:46 Total Bilirubin 0.2 mg/dL (0.15-1.2) 02/10/25 03:27 AST 43 U/L (0-32) H 02/10/25 03:27 ALT 87 U/L (0-33) H 02/10/25 03:27 Alkaline Phosphatase 130 U/L (35-105) H 02/10/25 03:27 C-Reactive Protein 292.3 mg/L (0.0-4.9) H 02/07/25 22:50 Total Protein 5.7 g/dL (6.6-8.7) L 02/10/25 03:27 Albumin 3.1 g/dL (3.5-5.2) L 02/10/25 03:27 Globulin 2.6 g/dL (1.3-4.6) 02/10/25 03:27 Lipase 21 U/L (13-60) 02/07/25 22:50 Urine Color Yellow (Yellow) 02/07/25 22:50 Urine Appearance Clear (CLEAR) 02/07/25:50 Urine pH 5 (5-7) 02/07/25:50 Ur Specific [place] 1.015 (1.005-1.030) 02/07/25:50 Urine Protein 1+ (Negative) H 02/07/25 22:50 Urine Glucose (UA) Norm (Normal) 02/07/25:50 Urine Ketones 1+ (Negative) H 02/07/25:50 Urine Blood Neg (Negative) 02/07/25:50 Urine Nitrate Negative (Negative) 02/07/25:50 Urine Bilirubin 1+ (Negative) H 02/07/25:50 Urine Urobilinogen 1 mg/dL (Negative) H 02/07/25 22:50 Ur Leukocyte Esterase 1+ (Negative) H 02/07/25 22:50 Urine RBC None /hpf (0-2) 02/07/25:50 Urine WBC 25-40 /hpf (0-5) H 02/07/25 22:50 Ur Squamous Epith Cells 0-4 /hpf (0-5) H 02/07/25 22:50 Ur Transition Epith Cell 0-4 /hpf 02/07/25:50 Amorphous Sediment Not Reportable 02/07/25:50 Urine Bacteria 1+ /hpf (NONE) H 02/07/25 22:50 Adenovirus (PCR) Not detected (NOT DETECT) 02/09/25: C. pneumoniae DNA (PCR) Not detected (NOT DETECT) 02/09/25: Coronavirus 229E (PCR) Not detected (NOT DETECT) 02/09/25 21: Human Metapneumovir PCR Not detected (NOT DETECT) 02/09/25 21: Influenza A (H1) PCR Not detected (NOT DETECT) 02/09/25: Influ A (H1/09) PCR Not detected (NOT DETECT) 02/09/25: Influenza A (H3) PCR Not detected (NOT DETECT) 02/09/25 21: Influenza Type A (PCR) Not detected (NOT DETECT) 02/09/25: Influenza Type B (PCR) Not detected (NOT DETECT) 10/12/25 21:25 M. pneumoniae (PCR) Not detected (NOT DETECT) 02/09/25 21:25 Parainfluenza 1 (PCR) Not detected (NOT DETECT) 02/09/25 21: Parainfluenza 2 (PCR) Not detected (NOT DETECT) 02/09/25 21: Parainfluenza 3 (PCR) Not detected (NOT DETECT) 02/09/25 21: Parainfluenza 4 (PCR) Not detected (NOT DETECT) 02/09/25 21: RSV Type A (PCR) Not detected (NOT DETECT) 02/09/25 21: RSV Type B (PCR) Not detected (NOT DETECT) 02/09/25: Entero/Rhino (PCR) Not detected (NOT DETECT) 02/09/25 21: SARS-CoV-2 (PCR) Not detected (NOT DETECT) 02/09/25 21: Vitals Last Vital Signs Temp 98.0 F 02/10/25 11:03 Pulse 88 02/10/25 11:03 Resp 18 02/10/25 11:03 BP 128/80 02/10/25 11:03 Pulse Ox 93 02/10/25 11:03 O2 Del Method Nasal Cannula 02/10/25 11:03 O2 Flow Rate 2 02/10/25 08:00 FiO2 21 02/08/25 20:28 Discharge Plan Discharge Patient Disposition: Home Condition: Fair Prescriptions: New ciprofloxacin HCl 500 mg tablet 500 mg PO Q12H Qty: 10 0RF pantoprazole [Protonix] 40 mg tablet,delayed release (DR/EC) 40 mg PO QAM Qty: 30 0RF metronidazole 500 mg tablet 500 mg PO Q8H 5 Days Qty: 15 0RF Continued cetirizine [Zyrtec] 10 mg tablet 10 mg PO DAILY dextroamphetamine-amphetamine [Adderall] 20 mg tablet 20 mg PO BID 30 Days Qty: 60 0RF Rx Instructions: Administer doses at least 4-6 hours apart celecoxib 200 mg capsule 200 mg PO DAILY omeprazole 20 mg capsule,delayed release(DR/EC) 20 mg PO DAILY alprazolam [Xanax] 0.5 mg tablet 0.5 mg PO DAILY Qty: 30 5RF Held tizanidine 4 mg tablet 4 mg PO BID PRN (Reason: muscle spasticity) Qty: 60 1RF hydrochlorothiazide 25 mg tablet 25 mg PO DAILY Hold Instructions: Resume on 02/24/25. Restart only if blood pressures more than 140/90 mmHg Discharge Order = DC NOW: Discharge Order (Routine); Ordered 02/10/25 Ordered By: Husam Vance Referrals: Yaneth Rico DO [Primary Care Provider, [facility]] - 7-10 days Han Sorenson MD [Physician, General Surgery] - 2 weeks Referral Note: Possible need for cholecystectomy Discharge Diet: Cardiac Discharge Activity: Resume usual activity and Increase activity as tolerated Patient Instructions: Opioid Safety, Patient Portal & Tammy Instructions Activity Restrictions/Additional Instructions: Do not take hydrochlorothiazide for now. Check your blood pressure daily at home and maintain a blood pressure diary. Restart hydrochlorothiazide if blood pressure persistently over 140/90 mmHg. Take ciprofloxacin and Flagyl which are the antibiotic for next 5 days. Ciprofloxacin will be twice daily and Flagyl be thrice daily. Do not take tizanidine while you are on ciprofloxacin. Follow-up with a primary care provider within next 1 week. You should follow-up with surgical team as an outpatient for cholecystectomy. Discharge Attestations Time Spent in Discharge Care*: greater than 30 min Specific Discharge Activities: educating patient, educating and/or supporting family/caregiver, discussing with pcp/other providers, discussing with telephonic nurse case manager/social workers/dc planners, documenting/other paperwork and evaluating patient/reviewing data Status at Discharge: Cognitive status at discharge: cognitively intact , Behavioral status at discharge: cooperative , Functional status at discharge: independent ambulation , Overall status at discharge: patient is back to baseline Quality Metrics Clinical Quality Measures [ No reported AMI, CVA or VTE this stay] Coding Level of Care Code 04057 Total time (in minutes) for Discharge: 65 Diagnoses Sepsis A41.9 Acute pyelonephritis due to bacteria N10; B96.89 Hypokalemia E87.6 Hypomagnesemia E83.42 Hypophosphatemia E83.39 Dehydration E86.0 Cigarette smoker F17.210 Obstructive sleep apnea G47.33 Cholelithiasis K80.20
--- NOTE | 2025-02-10 11:53 | MR_ITS ---
WS: [id number] MRI/MRCP OF THE ABDOMEN WITHOUT GADOLINIUM ENHANCEMENT TECHNIQUE: Coronal T2 Fase BH, Axial T2 Fase BH, Axial T2 FS BH, Zxial 3D Higgins BH, Axial DWI BH, 2D MRCP Radial BH, 3D MRCP (Resp), and Axial 3D Dyn BH Post sequences. CLINICAL INFORMATION: Concern for Cholecystitis, gall stones COMPARISON: Recent ultrasound and CT FINDINGS: Some images degraded by motion and respiratory artifact. Hepatomegaly. RIGHT hepatic lobe measures 19.2 cm craniocaudal. Diffuse fatty infiltration of the liver. Normal common bile duct and pancreatic duct. No intrahepatic dilatation. No significant gallbladder wall thickening or pericholecystic fluid. Cholelithiasis. Small stones or sludge better visualized on the ultrasound. Interval decrease in size of the common bile duct which today measures 3.3 mm at the pancreatic head significantly decreased in size compared to the recent CT where it measured 6 to 7 mm at the pancreatic head and was significantly dilated proximally. This suggest interval passage of a calculus. Recommend correlation with biliary function studies. Pancreas appears normal considering motion artifact. Small bilateral pleural effusions. Normal portal vein and splenic vein. Normal caliber upper abdominal aorta. Large esophageal hiatal hernia. Adrenal glands are normal. No hydronephrosis. MR/MR MRCP [id number] Impression: 1. No significant gallbladder wall thickening or pericholecystic fluid. Cholel ithiasis with tiny calculi or stones better visualized in the ultrasound. 2. Significant interval improvement in the common bile duct dilatation which i s now normal size measuring 3 mm. This suggest interval passage of a calculus. Recommend correlation with thyroid function studies. 3. Hepatomegaly with steatosis 4. Small pleural effusions 5. Large esophageal hiatal hernia send this
--- NOTE | 2025-02-10 14:23 | US_ITS ---
WS: [id number] RIGHT UPPER QUADRANT ULTRASOUND HISTORY: elevated LTFs, biliary ductal dilatation COMPARISON: CT 02/08/2025 Liver: 13.4 cm in length. Normal size liver and echogenicity. No bile duct dilatation or mass. Portal Vein: Normal hepatopetal flow with monophasic waveform. Gallbladder: Gallbladder is normally distended. There is debris in the gallbladder consistent with small amount of sludge layering posteriorly. No stones identified with certainty. Small gravel-like stones would be difficult to exclude. CBD: 0.4 cm Pancreas: Normal size and echogenicity. Right kidney: 12.1 cm in length. Normal size and echogenicity. No hydronephrosis or mass. Aorta and IVC: Unremarkable abdominal aorta and IVC. No ascites. Small RIGHT pleural effusion. US/US liver [id number] IMPRESSION: 1. Small amount of sludge and possible gravel-like stones within the gallbladd er. No gallbladder wall thickening or edema. 2. Normal common bile duct. Common bile duct was measuring top normal size to slightly enlarged on the CT of 02/08/2025. By ultrasound the common bile duct i s normal and there is no intrahepatic duct dilatation. If liver enzymes continu e to be abnormal consider follow-up MRCP. 3. Small RIGHT pleural effusion. New since the CT of 02/08/2025. 4. Normal RIGHT kidney.
[2025-02-10 14:48] VITALS: BP 128/80; PULSE 88; O2SAT 93
== END 2025-02-10 12:43 | disposition home or self-care (01) | DRG 720 ==
LOC: ER 22:44 → MEDSURG 02-08 02:26
PROVIDERS: Student in an Organized Health Care Education/Training Program; Admitting Provider Internal Medicine; Emergency Provider Emergency Medicine; PCP Family Medicine; Visit Provider Student in an Organized Health Care Education/Training Program
DX: A41.9 Sepsis, unspecified organism (principal); N10 Acute pyelonephritis; E87.6 Hypokalemia; E83.42 Hypomagnesemia; E83.39 Other disorders of phosphorus metabolism; E86.0 Dehydration; F17.210 Nicotine dependence, cigarettes, uncomplicated; R00.0 Tachycardia, unspecified; B96.89 Other specified bacterial agents as the cause of diseases classified elsewhere; G47.33 Obstructive sleep apnea (adult) (pediatric); K80.20 Calculus of gallbladder without cholecystitis without obstruction; R19.7 Diarrhea, unspecified; R15.9 Full incontinence of feces; Z79.899 Other long term (current) drug therapy; Z88.5 Allergy status to narcotic agent
CPT/HCPCS: 36415; 71045; 74177; 74181; 76705; 80053; 81001; 83605; 83690; 83735; 84100; 85025; 86140; 87040; 87086; 87486; 87581; 87633; 94640; 96361; 96372; 96374; 96375; 99285; J0696; J1644; J1885; J2270; J2405; J2470; J3475; J3480; J7030; J9999